=== PATIENT | female | born 1990 | race Caucasian/White ===

== ENCOUNTER 2016-08-15 12:05 | Emergency (ER) | payer BC, OTHER ==
[2016-08-15 13:20] VITALS: BP 134/84
[2016-08-15] MEDS ORDERED: NS 0.9% 1000 ML* 1,000 ML IV ONE (13:42)
--- NOTE | 2016-08-15 14:27 | UC ---
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 headache is not well treated with medications and cant drink enough, without vomiting. - History of Current Complaint Chief Complaint: UCGI Stated Complaint: DIZZINESS,VOMITTING,WEAKNESS Time Seen by Provider: 08/15/16 13:29 Hx Obtained From: Patient Onset/Duration: Sudden Onset, Lasting Days Timing: Constant Onset Severity: Moderate Current Severity: Severe Pain Intensity: 7 Associated Signs & Symptoms: Positive: Fever, Headache, Nausea, Weakness - Allergy/Home Medications Allergies/Adverse Reactions: Allergies Allergy/AdvReac Type Severity Reaction Status Date / Time Sertraline [From Zoloft] Allergy seizure Verified 08/15/16 13:20 Penicillins AdvReac Intermediate GI Upset Verified 08/15/16 13:20 Home Medications: Home Medications Acetaminophen [Extra Strength Acetaminop] 1,000 mg PO ONCE 08/15/16 [History Confirmed 08/15/16] Gummie 1 tab DAILY 08/15/16 [History Confirmed 08/15/16] PMH/Surg Hx/FS Hx/Imm Hx Previously Healthy: Yes Endocrine History Of: Denies: Diabetes Cardiovascular History Of: Denies: Cardiac Disorders, Hypertension Respiratory History Of: Denies: Asthma - Surgical History Surgical History: None - Family History Known Family History: Negative: Cardiac Disease, Hypertension - Social History Alcohol Use: None Substance Use Type: None Smoking Status (MU): Never Smoked Tobacco - Immunization History Most Recent Influenza Vaccination: [id number] Review of Systems Constitutional: Fever, Fatigue Skin: Negative Eyes: Negative ENT: Negative Respiratory: Negative Cardiovascular: Negative Gastrointestinal: Vomiting, Diarrhea Genitourinary: Negative Motor: Negative Neurovascular: Negative Musculoskeletal: Negative Neurological: Headache Psychological: Negative All Other Systems Reviewed And Are Negative: Yes Physical Exam Triage Information Reviewed: Yes Appearance: No Pain Distress, Well-Nourished, Ill-Appearing Vital Signs: Initial Vital Signs Temp 98.0 F 08/15/16 13:14 Pulse 92 08/15/16 13:14 Resp 16 08/15/16 13:14 BP 134/84 08/15/16 13:14 Pulse Ox 98 08/15/16 13:14 Vital Signs Reviewed: Yes Eye Exam: Normal Eyes: Positive: Conjunctiva Clear ENT Exam: Normal ENT: Positive: Normal ENT inspection, Pharynx normal, TMs normal Dental Exam: Normal Neck exam: Normal Neck: Positive: Supple, Nontender, No Lymphadenopathy Respiratory Exam: Normal Respiratory: Positive: Chest non-tender, Lungs clear, Normal breath sounds Cardiovascular Exam: Normal Cardiovascular: Positive: RRR, No Murmur, Pulses Normal Abdominal Exam: Other - epigastric tenderness Abdomen Description: Positive: No Organomegaly, Soft Bowel Sounds: Positive: Present Musculoskeletal Exam: Normal Musculoskeletal: Positive: Strength Intact, ROM Intact, No Edema Neurological Exam: Normal Neurological: Positive: Alert, Muscle Tone Normal Psychological Exam: Normal Skin Exam: Normal Course/Dx - Course Course Of Treatment: hx obtained, exam performed, medications reviewed, IV fluids given for hydration. patient has antiemetics at home, no prescriptions given, encouraged follow up with OB - Differential Dx - Multi-Symptom Provider Diagnoses: . vomiting. dehydration Discharge - Discharge Plan Condition: Stable Disposition: HOME Patient Education Materials: Nausea and Vomiting in (ED) Additional Instructions: take your Zofran as directed by the prescriber. Get plenty of rest and increase fluid intake as tolerated. follow up with Dr Espinoza if you are not tolerating fluids well.
== END 2016-08-15 15:08 | disposition home or self-care (01) ==
LOC: UCCORT 12:05
DX: O21.1 Hyperemesis gravidarum with metabolic disturbance (principal); R50.9 Fever, unspecified; O26.891 Other specified pregnancy related conditions, first trimester; R51 Headache; Z3A.13 13 weeks gestation of pregnancy; Z88.0 Allergy status to penicillin; Z88.8 Allergy status to other drugs, medicaments and biological substances
CPT/HCPCS: 96360; 99201; G0463

== ENCOUNTER 2018-08-14 11:36 | Emergency (ER) | payer BC ==
[2018-08-14 11:58] VITALS: BP 123/81
--- NOTE | 2018-08-14 12:18 | ED ---
Throat Pain/Nasal Congestion - HPI Summary HPI Summary: 28 yr old female with the complaint of sore throat. Onset of pain couple of days ago. Symptoms moderate. No drooling, no stridor. No prior history of strep pharyngitis. She has not had fever. She works as a school nurse. She has no other complaints. - History of Current Complaint Chief Complaint: UCRespiratory Time Seen by Provider: 08/14/18 12:01 - Allergies/Home Medications Allergies/Adverse Reactions: Allergies Allergy/AdvReac Type Severity Reaction Status Date / Time Penicillins Allergy GI Upset Verified 08/14/18 11:52 sertraline Allergy See Comment Verified 08/14/18 11:52 Home Medications: Home Medications Acetaminophen [Acetaminophen Extra Strength] 1,000 mg PO Q6H PRN 08/14/18 [ History Confirmed 08/14/18] PMH/Surg Hx/FS Hx/Imm Hx Endocrine/Hematology History: Denies: Hx Diabetes Cardiovascular History: Denies: Hx Hypertension Respiratory History: Denies: Hx Asthma Infectious Disease History: No Infectious Disease History: Denies: Traveled Outside the [place] in Last 30 Days - Family History Known Family History: Negative: Cardiac Disease, Hypertension - Social History Occupation: Employed Full-time Alcohol Use: None Substance Use Type: Reports: None Smoking Status (MU): Never Smoked Tobacco Review of Systems Constitutional: Negative Positive: Sore Throat All Other Systems Reviewed And Are Negative: Yes Physical Exam Triage Information Reviewed: Yes Vital Signs On Initial Exam: Initial Vitals Temp Pulse Resp BP Pulse Ox 98.4 F 95 16 123/81 99 08/14/18 11:53 08/14/18 11:53 08/14/18 11:53 08/14/18 11:53 08/14/18 11:53 Vital Signs Reviewed: Yes Appearance: Positive: Well-Appearing, No Pain Distress Skin: Positive: Warm, Skin Color Reflects Adequate Perfusion Head/Face: Positive: Normal Head/Face Inspection Eyes: Positive: EOMI ENT: Positive: Pharyngeal erythema, Tonsillar exudate Neck: Positive: Nontender, No Lymphadenopathy Respiratory/Lung Sounds: Positive: Clear to Auscultation, Breath Sounds Present Cardiovascular: Positive: RRR. Negative: Murmur Abdomen Description: Negative: Distended Musculoskeletal: Positive: Strength/ROM Intact Neurological: Positive: Sensory/Motor Intact, Alert, Oriented to Person Place, Time, CN Intact II-III Psychiatric: Positive: Normal - [place] Coma Scale Best Eye Response: 4 - Spontaneous Best Motor Response: 6 - Obeys Commands Best Verbal Response: 5 - Oriented Coma Scale Total: 15 Diagnostics - Vital Signs Vital Signs Temp Pulse Resp BP Pulse Ox 08/14/18 11:53 98.4 F 95 16 123/81 99 - Laboratory Lab Results: Lab Results 08/14/18 Range/Units 12:03 Group A Strep Rapid Positive A (Negative) Lab Statement: Any lab studies that have been ordered have been reviewed, and results considered in the medical decision making process. EENT Course/Dx - Course Course Of Treatment: 28 yr old with strep pharyngitis. DC home on Biaxin. - Diagnoses Provider Diagnoses: Strep pharyngitis Discharge - Sign-Out/Discharge Documenting (check all that apply): Patient Departure All imaging exams completed and their final reports reviewed: No Studies - Discharge Plan Condition: Good Disposition: HOME Prescriptions: Clarithromycin TAB* [Biaxin 500 MG TAB*] 500 mg PO BID #20 tab Patient Education Materials: Strep Throat (ED) Referrals: Thomas Soria DO [Primary Care Provider] - 3 Days - Billing Disposition and Condition Condition: GOOD Disposition: Home
== END 2018-08-14 12:19 | disposition home or self-care (01) ==
LOC: UCCORT 11:36
DX: J02.0 Streptococcal pharyngitis (principal); Z88.0 Allergy status to penicillin; Z88.8 Allergy status to other drugs, medicaments and biological substances
CPT/HCPCS: 87651; 99212; G0463